=== PATIENT | female | born 1980 ===

== ENCOUNTER → 2016-06-26 | Outpatient (CLI) | payer OTHER ==
[~2016-06-26] MED LIST: FUROSEMIDE INJ 10 MG/ML 2 ML VIAL IV ONE
--- NOTE | 2016-06-26 14:05 | DIAGNOSTIC IMAGING REPORT ---
RENAL SCAN DIURETIC (MAG 3) HISTORY: N13.30 Hydronephrosis of left kidney TECHNIQUE: A total of 8.8 mCi of technetium 99m MAG3 was injected intravenously. This was immediately followed by dynamic posterior renal imaging both before and after the intravenous administration of 20 mg of Lasix. COMPARISON STUDY: IVP 06/20/2016. FINDINGS: The split function was 56% on the left and 44% on the right. There is prompt and symmetric perfusion of the kidneys. However, there is delayed excretion within the left renal collecting system with a dilated left renal collecting system to the level of the ureteropelvic junction. Trace spontaneous ureteral activity is identified on the left. Following the intravenous administration of Lasix there is partial emptying of the left renal collecting system. Therefore, this is consistent with a dilated but nonobstructed left renal collecting system. There is a normal renogram curve and excretion on the right with no evidence for hydronephrosis. IMPRESSION: 1. Dilated but nonobstructed left renal collecting system. 2. Normal right renal function. 3. The split function was 56 % on the left and 44% on the right. Electronically signed by: James Zuniga M.D. 06/26/2016 2:03 PM
== END | disposition home or self-care (01) ==
LOC: C.NUCL 12:26
PROVIDERS: ATTEND Urology
DX: N13.30 Unspecified hydronephrosis (principal)